=== PATIENT | male | born 1995 | race Caucasian/White ===

== ENCOUNTER 2016-03-24 14:43 | Emergency (ER) | payer MEDICAID ==
[2016-03-24 15:07] VITALS: RESP 16
[2016-03-24] MEDS ORDERED: HYDROCODONE/APAP 5/325 TAB PO ONE (15:48)
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
[2016-03-24] MEDS ORDERED: NS 1,000 ML IV ONE (16:33)
[2016-03-24] MEDS ORDERED: IOPAMIDOL (ISOVUE-300) 100 ML BTL IV ONE (16:54)
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
--- NOTE | 2016-03-24 18:25 | CT ---
CT Scan of the Chest (With Contrast) Clinical Indications: Skiing injury. Possible subcutaneous emphysema on right shoulder x-rays. Technique: During machine power injection of 90 mL [id number]-300, intravenously, multidetector helical CT imaging was performed from the superior thoracic inlet to the diaphragm. The radiologist kolby images at the computer workstation. Dose reduction techniques were utilized. Findings: The lungs are clear and no pleural effusions are found. There are no masses in the lungs, mediastinum, and pleura. No pneumothorax. No subcutaneous air. No rib fracture. The great vessels a re normal. The pericardium is not thickened. The thoracic aorta has a normal contour. Limited eval uation of the upper abdomen to the adrenal glands demonstrates no significant abnormalities. Impression: Normal CT of the chest with contrast. Results called to Fer Boykin PA-C..
[2016-03-24 18:36] VITALS: BP 123/81; PULSE 75; TEMP 98.1; O2SAT 97
== END 2016-03-24 18:36 | disposition home or self-care (01) ==
DX: S40.011A Contusion of right shoulder, initial encounter (principal); V00.321A Fall from snow-skis, initial encounter; Y99.8 Other external cause status; Y93.23 Activity, snow (alpine) (downhill) skiing, snowboarding, sledding, tobogganing and snow tubing
CPT/HCPCS: 82947-QW; Q9967